=== PATIENT | female | born 1945 | race Caucasian/White ===

== ENCOUNTER → 2024-05-09 | Outpatient (CLI) | payer MEDICARE, OTHER | END | disposition home or self-care (01) | LOC: RAD 11:33 | PROVIDERS: ATTEND Specialist | DX: M19.012 Primary osteoarthritis, left shoulder (principal); M25.812 Other specified joint disorders, left shoulder; M85.612 Other cyst of bone, left shoulder; J94.8 Other specified pleural conditions; M25.512 Pain in left shoulder; M06.9 Rheumatoid arthritis, unspecified | CPT/HCPCS: 73200 ==